=== PATIENT | female | born 2005 | race Caucasian/White ===

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

== ENCOUNTER 2025-01-16 09:46 | Outpatient (CLI) | payer OTHER, SELFPAY | END 2025-01-16 09:47 | disposition home or self-care (01) | LOC: NFLDREF 01-21 04:11 | PROVIDERS: PCP Nurse Practitioner Pediatrics; Referring Provider Nurse Practitioner Pediatrics; Visit Provider Obstetrics & Gynecology | DX: F64.0 Transsexualism (principal) | CPT/HCPCS: 84403 ==